=== PATIENT | male | born 1970 | race Caucasian/White ===

== ENCOUNTER 2020-12-20 11:45 | Emergency (ER) | payer OTHER ==
[~2020-12-20] VITALS: Ht 172.7 cm; Wt 81.7 kg
[~2020-12-20 11:45] MED LIST: ASPIRIN325 PO; BACTRIM DS TAB1 EACH PO; HYDROCODONE-AP1 EAC6 PO; IBUPROFEN 800800 M1 PO; KEFLEX500 MG PO
[2020-12-20] MEDS ORDERED: ANTIBIOTICS (11:54)
[2020-12-20] MEDS ORDERED: STEROIDS (11:54)
[2020-12-20 13:00] VITALS: BP 115/70
== END 2020-12-20 13:01 | disposition home or self-care (01) ==
LOC: M.ERS 11:45
DX: S81.811A Laceration without foreign body, right lower leg, initial encounter (principal); Z90.89 Acquired absence of other organs; Z91.048 Other nonmedicinal substance allergy status; Z79.899 Other long term (current) drug therapy; W27.8XXA Contact with other nonpowered hand tool, initial encounter; Y93.89 Activity, other specified; Y92.69 Other specified industrial and construction area as the place of occurrence of the external cause; Y99.0 Civilian activity done for income or pay